=== PATIENT | female | born 1980 | race Caucasian/White ===

== ENCOUNTER 2017-01-14 16:47 | Emergency (ER) | payer SELFPAY ==
[2017-01-14 17:14] VITALS: BP 119/67
--- NOTE | 2017-01-14 18:16 | RAD ---
Indication: Right lower leg pain and injury. 2 views of the right lower leg demonstrates no fracture. No evidence of radiopaque foreign body is identified. IMPRESSION: No fractures identified. No radiopaque foreign body is noted.
[2017-01-14] MEDS ORDERED: Lidocaine 2% PF * 5 ML VIAL INJ ONE (18:23)
[2017-01-14] MEDS ORDERED: Cephalexin CAP* 500 MG PO ONE (19:00)
--- NOTE | 2017-01-14 19:41 | UC ---
Laceration HPI - HPI Summary HPI Summary: 4 HOURS BOW REPA[employer], HIT RIGHT LEG ON WOOD. IRREGULAR LACERATION TO (ANTERIOR) LEG. TETANUS UTD - History Of Current Complaint Chief Complaint: UCLowerExtremity Stated Complaint: LEG LAC/PUNCTURE Time Seen by Provider: 01/14/17 17:15 Hx Obtained From: Patient Hx Last Menstrual Period: 05/23/15 Mechanism Of Injury: Blunt Trauma Onset/Duration: Sudden Onset, Lasting Hours Severity: Moderate Aggravating Factors: Nothing - Allergies/Home Medications Allergies/Adverse Reactions: Allergies Allergy/AdvReac Type Severity Reaction Status Date / Time Antihistamines, Allergy Altered Verified 01/14/17 17:12 Diphenhydramine-typ Mental Status Bacitracin Allergy Rash Verified 01/14/17 17:12 [From Triple Antibiotic Extra (w/Pramoxin] [place] Allergy Rash Verified 01/14/17 17:12 [place] Allergy Rash Verified 01/14/17 17:12 Neomycin Allergy Rash Verified 01/14/17 17:12 [From Triple Antibiotic Extra (w/Pramoxin] Polymyxin B Allergy Rash Verified 01/14/17 17:12 [From Triple Antibiotic Extra (w/Pramoxin] Pramoxine Allergy Rash Verified 01/14/17 17:12 [From Triple Antibiotic Extra (w/Pramoxin] NARCOTICS Allergy Severe Altered Uncoded 01/14/17 17:12 Mental Status BENZINES Allergy Rash Uncoded 01/14/17 17:12 Home Medications: Home Medications Testosterone [Androgel] 40.5 mg TD DAILY 01/14/17 [History Confirmed 01/14/17] PMH/Surg Hx/FS Hx/Imm Hx Previously Healthy: Yes - Surgical History Surgical History: Yes Surgery Procedure, Year, and Place: URETHRAL SCOPE. Gender reassignment surgery - breasts removed 07/2015 - Family History Known Family History: Negative: Blood Disorder Family History: NON CONTRIBUTORY - Social History Occupation: Employed Full-time Lives: With Family Alcohol Use: None Substance Use Type: None Smoking Status (MU): Never Smoked Tobacco Review of Systems Constitutional: Negative Skin: Other - LACERATION RIGHT ANTERIOR LEG Eyes: Negative ENT: Negative Respiratory: Negative Cardiovascular: Negative Gastrointestinal: Negative Genitourinary: Negative Motor: Negative Neurovascular: Negative Musculoskeletal: Negative Neurological: Negative Psychological: Negative All Other Systems Reviewed And Are Negative: Yes Physical Exam Triage Information Reviewed: Yes Appearance: Well-Appearing, No Pain Distress, Well-Nourished Vital Signs: Initial Vital Signs Temp 98.9 F 01/14/17 17:03 Pulse 96 01/14/17 17:03 Resp 16 01/14/17 17:03 BP 119/67 01/14/17 17:03 Pulse Ox 100 01/14/17 17:03 Vital Signs Reviewed: Yes Eye Exam: Normal ENT Exam: Normal ENT: Positive: Normal ENT inspection Dental Exam: Normal Neck exam: Normal Neck: Positive: Supple Respiratory Exam: Normal Respiratory: Positive: Chest non-tender, Lungs clear, Normal breath sounds, No respiratory distress, No accessory muscle use Cardiovascular Exam: Normal Cardiovascular: Positive: RRR, No Murmur, Pulses Normal, Brisk Capillary Refill Abdominal Exam: Normal Musculoskeletal: Positive: Strength Intact, ROM Intact, Other: - LACERATION RIGHT ANTERIOR LEG Neurological Exam: Normal Psychological Exam: Normal Skin: Positive: Other - LACERATION RIGHT ANTERIOR LEG Laceration Repair - Laceration Repair 1 Description: Irregular Laceration Size After Repair: Length (cm) - 4, Width (mm) - 5, Depth (mm) - 9 Type Injection: Local Anesthesia Used: 2.0% Lido Cleansing Completed Via Routine Prep: Yes Irrigation With Pressure Irrigation Device: Yes Closure Material: Sutures - 5 X 4-0 PROLENE Suture Of: Skin, SQ Suture Type: Prolene Laceration Course/Dx - Differential Dx - Laceration/Wound Differental Diagnoses: Cellulitis, Laceration Provider Diagnoses: RIGHT LEG LACERATION; PUNCTURE WOUND Discharge - Discharge Plan Condition: Stable Disposition: HOME Prescriptions: Cephalexin CAP* [Keflex CAP*] 500 mg PO QID #28 cap Patient Education Materials: Care For Your Stitches (ED), Laceration (ED), Puncture Wound (ED) Referrals: Vanessa King MD [Medical Doctor] - If Needed Nunu Hernandez MD [Primary Care Provider] - Additional Instructions: Have sutures removed in ten days
== END 2017-01-14 19:00 | disposition home or self-care (01) ==
LOC: UCEAST 16:47
DX: S81.811A Laceration without foreign body, right lower leg, initial encounter (principal); W45.8XXA Other foreign body or object entering through skin, initial encounter; Y92.9 Unspecified place or not applicable
CPT/HCPCS: 12002; 99212; A9270-GY; G0463

== ENCOUNTER 2018-09-01 09:07 | Emergency (ER) | payer BC ==
--- NOTE | 2018-09-01 10:12 | UC ---
Abdominal Pain Female HPI - HPI Summary HPI Summary: 37 y/o female presents to the urgent care c/o RIGHT UPPER ABDOMINAL PAIN , ON AND OFF FOR THREE WEEKS. PAIN RADIATES TO RIGHT BACK AND SCAPULA. PAIN IS WORSE AFTER EATING. NAUSEA AT TIMES. BLECHING AND BURPING MORE. NO CHILLS OR FEVER. - History of Current Complaint Chief Complaint: UCAbdominalPain Stated Complaint: RT SIDE PAIN Time Seen by Provider: 09/01/18 10:10 Hx Obtained From: Patient Hx Last Menstrual Period: 08/18/18 Onset/Duration: Gradual Onset, Lasting Weeks - 3 weeks, Still Present, Worse Since - 1 week Timing: Intermittent Episodes Lasting: - seconds Severity Initially: Mild Severity Currently: Moderate Pain Intensity: 4 Pain Scale Used: 0-10 Numeric Location: Discrete At: RUQ Radiates: Yes Radiates to: Back - chest Character: Aching Aggravating Factor(s): Food Alleviating Factor(s): NPO Associated Signs and Symptoms: Positive: Decreased Appetite, Nausea. Negative: Diaphoresis, Fever, Cough, Chest Pain, Dizzy, Back Pain, Constipation, Blood in Stool, Urinary Symptoms, Vaginal Bleeding, Vaginal Discharge, Vomiting, Diarrhea - Risk Factors Ectopic Risk Factor: Negative Ovarian Torsion Risk Factor: Negative Allergies/Adverse Reactions: Allergies Allergy/AdvReac Type Severity Reaction Status Date / Time bacitracin Allergy Unknown Unknown Verified 09/01/18 10:00 [From Triple Antibiotic] Reaction Details neomycin Allergy Unknown Unknown Verified 09/01/18 10:00 [From Triple Antibiotic] Reaction Details polymyxin B Allergy Unknown Unknown Verified 09/01/18 10:00 [From Triple Antibiotic] Reaction Details antihistamines , benadryl Allergy Unknown Altered Uncoded 09/01/18 09:55 and other Mental Status benzines Allergy Unknown dishydronic Uncoded 09/01/18 09:57 ezema narcotics Allergy Unknown hyperalgesi Uncoded 09/01/18 09:57 a Home Medications: Home Medications Naltrexone TAB* 2 mg PO BID 09/01/18 [History Confirmed 09/01/18] PMH/Surg Hx/FS Hx/Imm Hx - Surgical History Surgical History: Yes Surgery Procedure, Year, and Place: URETHRAL SCOPE; Gender reassignment surgery - breasts removed 07/2015 - Family History Known Family History: Negative: Blood Disorder Family History: NON CONTRIBUTORY - Social History Alcohol Use: None Substance Use Type: None Smoking Status (MU): Never Smoked Tobacco Physical Exam - Summary Physical Exam Summary: Vital Signs Reviewed: Yes General:Patient is a well developed and nourished female who is sitting comfortable in the examining table. Patient is not in any acute respiratory distress. Eyes: Positive: Conjunctiva Clear - PERRLA, EOMI, fundi grossly normal ENT: Positive: Normal ENT inspection, Hearing grossly normal, Pharynx normal, TMs normal Neck: Positive: Supple, Nontender, No Lymphadenopathy Respiratory: Positive: Chest non-tender, Lungs clear, Normal breath sounds, No respiratory distress Cardiovascular: Positive: RRR,S1 and S2 present, No Murmur, Pulses Normal, Brisk Capillary Refill Abdomen Description: Positive:- Abd: Flat with no distention. No surface trauma , scars, incisions. hyperactive bowel sounds present in all four quadrants. RUQ tenderness on deep palpation, no guarding, no rigidity to palpation. No masses palpated, no pulsation in epigastric area. No organomegaly. Negative [place] signs. No periumbilical tenderness. No rebound in the lower quadrants. NT over McBurneys point. Good femoral pulses bilaterally. No hernia noted. No CVAT bilaterally Musculoskeletal: Positive: Strength Intact, ROM Intact, No Edema,FROM in all major joints, no edema, no cyanosis or clubbing. Neuro: Alert and oriented x 3. No acute neurological deficits. Speech is normal. Psychological: WNL Skin: Dry and warm Triage Information Reviewed: Yes Vital Signs: Initial Vital Signs Temp 97.6 F 09/01/18 10:01 Pulse 60 09/01/18 10:01 Resp 16 09/01/18 10:01 BP 110/77 09/01/18 10:01 Pulse Ox 100 09/01/18 10:01 Abd Pain Female Course/Dx - Course Course Of Treatment: IMPRESSION: NO ACUTE SONOGRAPHIC PATHOLOGY OF THE VISUALIZED PORTION OF THE ABDOMEN. IMPRESSION: NO ACUTE NONCONTRAST CT PATHOLOGY OF THE VISUALIZED ABDOMEN OR PELVIS. - Differential Dx/Diagnosis Differential Diagnosis: Appendicitis, Gall Bladder Disease, Pancreatitis, Peptic Ulcer Disease, Renal Colic, Urinary Tract Infection Provider Diagnosis: Right upper quadrant abdominal pain, Hematuria Discharge - Sign-Out/Discharge Documenting (check all that apply): Patient Departure - D/C home All imaging exams completed and their final reports reviewed: Yes - Discharge Plan Condition: Stable Disposition: HOME Patient Education Materials: Gas and Bloating (ED), Acute Abdominal Pain (ED), Hematuria (ED) Referrals: Nathalie Magaña MD [Primary Care Provider] - 3 Days Emanuel Flores MD [Medical Doctor] - 3 Days Lawrence Clemons MD [Medical Doctor] - 3 Days Additional Instructions: 1- Please take Tylenol PO q6-8hrs prns or Drink hot water or hot tea to relieve gas. Limiting dietary ingestion of known gas-producing foods such as cabbage, onions, broccoli, brussel sprouts, wheat, and potatoes can help reduce symptoms. Also avoid drinking carbonated beverages, and gulping food or liquids 2 - There was some trace of hematuria on your UA, please f/u w/ Urologist DR Sanders for furthe management. 3-Please f/u w/ GI DR Flores for further management in your RUQ abdominal pain. 4- If symptoms worsen please go immediately to the ER for further evaluation and treatment since the CT of the abdomen was performed w/o contrast.. - Billing Disposition and Condition Condition: STABLE Disposition: Home
[2018-09-01 12:46] VITALS: BP 104/63
== END 2018-09-01 12:47 | disposition home or self-care (01) ==
LOC: UCCORT 09:07
DX: R10.11 Right upper quadrant pain (principal); R31.9 Hematuria, unspecified; Z88.1 Allergy status to other antibiotic agents; Z88.5 Allergy status to narcotic agent; Z88.8 Allergy status to other drugs, medicaments and biological substances
CPT/HCPCS: 74176; 76705; 81003; 99211; G0463